=== PATIENT | female | born 1955 | race Caucasian/White ===

== ENCOUNTER 2020-05-13 06:44 | Emergency (ER) | payer MEDICARE, OTHER ==
[~2020-05-13] VITALS: Ht 167.6 cm; Wt 99.3 kg
[~2020-05-13 06:44] MED LIST: DIAZEPAM10 MG PO; LASIX40 MG PO; LEVAQUIN500 MG PO; LEVOTHYROXINE125 MCG PO; LISINOPRIL10 MG PO; PRILOSEC OTC20 MG PO; SERTRALINE HCL100 MG PO
[2020-05-13] MEDS ORDERED: DEXAMETHASONE 4 MG TAB PO STA (06:59)
[2020-05-13] MEDS ORDERED: FAMOTIDINE 20 MG TAB PO ONE (07:00)
[2020-05-13] MEDS ORDERED: DIPHENHYDRAMINE HCL 25 MG CAP PO ONE (07:00)
[2020-05-13 09:39] VITALS: BP 100/67
== END 2020-05-13 09:41 | disposition home or self-care (01) ==
LOC: ER 07:15
DX: T78.40XA Allergy, unspecified, initial encounter (principal); R94.31 Abnormal electrocardiogram [ECG] [EKG]
CPT/HCPCS: 99282; J8540